=== PATIENT | male | born 1955 | race Caucasian/White ===

== ENCOUNTER 2016-11-03 05:32 | Day surgery (SDC) | payer OTHER ==
[2016-11-03] MEDS ORDERED: Sodium Chloride 0.9% 10 ML Syringe FLUSH PRN ×2 (06:12→06:15)
[2016-11-03] MEDS ORDERED: ceFAZolin 2 GM in Premix Bag 1 BAG IV ONE (06:15)
[2016-11-03] MEDS ORDERED: Lactated Ringers 1,000 ML IV SCH (06:15)
[2016-11-03] MEDS ORDERED: Lidocaine 1% 30 ML SDV ONE (06:18)
[2016-11-03] MEDS ORDERED: Bupivacaine 0.5% 10 ML SDV ONE (06:18)
[2016-11-03] MEDS ORDERED: Midazolam 1 MG/ML 2 ML SDV ONE (06:24)
[2016-11-03] MEDS ORDERED: fentaNYL 100 MCG/2 ML SDV ONE (06:24)
[2016-11-03] MEDS ORDERED: Glycopyrrolate 0.2 MG/ML 2 ML SDV ONE (06:24)
[2016-11-03] MEDS ORDERED: Ondansetron 4 MG/2 ML SDV ONE (06:24)
[2016-11-03] MEDS ORDERED: Propofol 200 MG/20 ML SDV ONE (06:24)
[2016-11-03] MEDS ORDERED: Lidocaine 2% 20 ML MDV ONE (06:25)
[2016-11-03] MEDS ORDERED: Famotidine 20 MG/2 ML SDV ONE (06:25)
[2016-11-03] MEDS ORDERED: Lidocaine 1% 30 ML SDV INJECT ONE ×2 (06:50→07:25)
[2016-11-03] MEDS ORDERED: Bupivacaine 0.5% 10 ML SDV INJECT ONE ×2 (06:50→07:25)
[2016-11-03] MEDS ORDERED: Acetaminophen/oxyCODONE 325-5 MG Tab PO PRN (07:32)
--- NOTE | 2016-11-03 07:34 | PCM.OPNOTE ---
- General Post-Op/Procedure Note Date of Surgery/Procedure: 11/03/16 Operative Procedure(s): left foot hardware removal Pre Op Diagnosis: left foot painful hardware Post-Op Diagnosis: stephanie Anesthesia Technique: Local, MAC Primary Surgeon: Alana Khanna Anesthesia Provider: Pedro Kidd EBL in mLs: 5 Complications: none Condition: Good Free Text/Narrative:: Pt tolerated procedure well and was transported to recovery with vss and vascular status intact to left foot. 2.0 kleber screw removed. tt 24 mins.
[2016-11-03 08:30] VITALS: BP 103/60
--- NOTE | 2016-11-03 12:23 | OR ---
DATE: 11/03/2016 PREOPERATIVE DIAGNOSIS: Left foot painful hardware. POSTOPERATIVE DIAGNOSIS: Left foot painful hardware. PROCEDURE PERFORMED: Left foot hardware removal. ANESTHESIA: Local MAC with preoperative local block of 10 mL of 1:1 mixture 1% lidocaine plain, and 0.5% Marcaine plain. TOURNIQUET TIME: 24 minutes. Pneumatic ankle tourniquet. ESTIMATED BLOOD LOSS: Minimal. SPECIMEN REMOVED: None. COMPLICATIONS: None. INDICATIONS: Clive is a 61-year-old male, who presents with continued swelling and pain to his forefoot, status post bunionectomy and hammertoe procedure done a few months ago. He states that he will get swelling by the end of the day to the forefoot which causes him to have trouble wearing shoes. He also feels like he cannot push off all the way when he is walking, legs have been stopping him from pushing off. He states that it really is not painful until the very end of the day when it started swelling. He is in regular shoes. X-rays, 3 views of the left foot reveal screw at the second metatarsal head has shifted and is now extending into the second metatarsal phalangeal joint at the plantar surface of the joint into the plantar soft tissues. It looks like there was possibly either some collapse of the bone in that area with the large bone callus and also lucency around the screw. The bunion site at the first metatarsal head is completely healed and the screw is intact. The patient voiced good understanding of proposed procedure and possible complications, and elects to have surgery at this time. PROCEDURE: The patient was taken to the operating room, lying in supine position. After adequate anesthesia induction as described above, the left foot was prepped and draped in the usual sterile fashion. A pneumatic ankle tourniquet was inflated to 225 mmHg. Attention was then directed to the dorsal aspect of the second metatarsal distal aspect where an approximately 3 cm linear incision was made overlying the distal metatarsal. Sharp and blunt dissection was made to the distal metatarsal at the area of the hardware. The hardware was not able to be visualized and the fluoroscopy was used to verify the position of the screw head. The screw was completely buried in the bone and a rongeur was used to remove the bone overlying the screw head. The bone was removed all the way actually the medullary canal where the screw had migrated to the medullary canal and was loose in that area. The screw was completely removed at that time. The area was then irrigated with copious amounts of sterile saline. Deep closure was completed with 3-0 Vicryl, and skin closure was completed with 4-0 Nylon. The area was dressed with Xeroform to the incision site, fluffs, Webril, and Dk wrap. He was placed in a Cam Boot. I will have him in a boot for approximately 2 to 4 weeks. He was then discharged home once he met hospital discharge requirements. [facility] /[id number]
[2016-11-03] MEDS ORDERED: Ondansetron 4 MG/2 ML SDV IV ONE (16:43)
[2016-11-03] MEDS ORDERED: Midazolam 1 MG/ML 2 ML SDV IV ONE (16:43)
[2016-11-03] MEDS ORDERED: Lidocaine 2% 20 ML MDV INJECT ONE (16:43)
[2016-11-03] MEDS ORDERED: fentaNYL 100 MCG/2 ML SDV IV ONE (16:43)
[2016-11-03] MEDS ORDERED: Glycopyrrolate 0.2 MG/ML 2 ML SDV IV ONE (16:43)
[2016-11-03] MEDS ORDERED: Propofol 200 MG/20 ML SDV IV ONE (16:43)
[2016-11-03] MEDS ORDERED: Famotidine 20 MG/2 ML SDV IV ONE (16:43)
== END 2016-11-03 08:46 | disposition home or self-care (01) ==
LOC: DL.SDS 05:32
PROVIDERS: ATTEND Podiatrist
DX: T84.84XA Pain due to internal orthopedic prosthetic devices, implants and grafts, initial encounter (principal)
CPT/HCPCS: 28022; 76000; J0690; J2250; J2405; J2704; J3010; J7120; 01480; J3490; S0028

== ENCOUNTER 2019-10-09 05:55 | Day surgery (SDC) | payer OTHER ==
[2019-10-09] MEDS ORDERED: fentaNYL 100 MCG/2 ML SDV IV ONE ×3 (05:56→06:59)
[2019-10-09] MEDS ORDERED: Midazolam 1 MG/ML 2 ML SDV IV ONE ×7 (05:56→07:05)
[2019-10-09] MEDS ORDERED: Dextrose 5%-0.45% NaCl 1,000 ML IV SCH (06:00)
[2019-10-09] MEDS ORDERED: Sodium Chloride 0.9% 10 ML Syringe FLUSH PRN (06:00)
[2019-10-09] MEDS ORDERED: Midazolam 1 MG/ML 2 ML SDV ONE (06:33)
[2019-10-09] MEDS ORDERED: fentaNYL 100 MCG/2 ML SDV ONE (06:34)
--- NOTE | 2019-10-09 07:53 | OR ---
DATE: 10/09/2019 PROCEDURE: Total colonoscopy, narrow band imaging, and cold snare polypectomy. INSTRUMENT USED: CF-NO866M Olympus video colonoscope. PREMEDICATIONS: Fentanyl 100 mcg intravenous, Versed 4 mg intravenous, nasal O2 cannula. Procedure was done under pulse oximetry, BP recording, and personnel monitor. INDICATION: The patient with rectal bleeding. Colonoscopic examination is done for detection of any polypoid lesions and removal. Endoscopic hemostasis therapy if needed. DESCRIPTION OF PROCEDURE: Initial rectal exam was unremarkable. Rigid anoscopy showed small internal hemorrhoids without bleeding from them. The colonoscope was passed with ease up to the ileocecal area. Photographs were taken of the normal-appearing cecum identified by double-bulged ileocecal folds. No bleeding was noted from any of the visualized areas at the commencement of the examination. There was some amount of solid fecal material that had to be aspirated clear. Braidwood scale 2 in all the areas, total score 6. No stricture. No vascular ectasia. No large isolated ulcerations seen. No evidence of diffuse inflammatory bowel disease in the form of friability, contact bleeding, or ulcerations. Probing the proximal sides of folds and flexures using adequate distention and clearing up the stool material, withdrawal of the scope was made. In the distal descending colon, 5 mm sized benign-appearing polyp was noted. NBI views were obtained. Cold snare polypectomy was done. The tissue was retrieved and sent for histopathology. No bleeding was noted from any of the visualized areas at the completion of examination. Photographs were taken of the polyp as well as polypectomy site. IMPRESSION: 1. Internal hemorrhoids. 2. Descending colon polyp. The patient tolerated the procedure well. [facility] /[id number]
[2019-10-09 09:29] VITALS: BP 138/80; PULSE 61
== END 2019-10-09 09:40 | disposition home or self-care (01) ==
LOC: DL.ENDO 05:55
PROVIDERS: ATTEND Internal Medicine Gastroenterology
DX: K63.5 Polyp of colon (principal); K64.8 Other hemorrhoids; I10 Essential (primary) hypertension; G47.33 Obstructive sleep apnea (adult) (pediatric); E66.09 Other obesity due to excess calories; G89.29 Other chronic pain; Z98.890 Other specified postprocedural states; Z68.37 Body mass index [BMI] 37.0-37.9, adult
CPT/HCPCS: 45385; J2250; J3010; J7042

== ENCOUNTER 2020-10-02 16:37 | Emergency (ER) | payer OTHER ==
[2020-10-02 16:54] VITALS: PULSE 52
[2020-10-02 17:19] LABS: ANION GAP 9.5 mEq/L (7-13); CHLORIDE,CL 101 mmol/L (98-107); SODIUM,NA 138 mmol/L (136-145)
--- NOTE | 2020-10-02 17:22 | EDM.PDOC ---
<GrazynaRoxana - Last Filed: 10/02/20 18:10> ED HPI GENERAL MEDICAL PROBLEM - General Chief Complaint: Respiratory Problem Stated Complaint: CHEST PAIN, SHORT OF BREATH, MIDDLE BACK Time Seen by Provider: 10/02/20 17:24 Source of Information: Reports: Patient History Limitations: Reports: No Limitations - History of Present Illness INITIAL COMMENTS - FREE TEXT/NARRATIVE: Patient is a 65 y.o male, sent to us from the [facility] in [place], who presents to the ED with c/o of 1)right sided chest pain 2)back spasms and 3)nausea/vomiting. The patient reports mid to lower back pain for the past 2-3 weeks, but states he woke up this morning and it was remarkably worse. He rates his pain as 8/10 and characterizes it as sharp. He then became nauseous and began dry heaving, but reports no emesis. His back pain began to radiate to the right side of his chest and he characterizes it as tight and sharp, rates it 8/10. No radiation to the jaw or left arm. No aggravating or alleviating factors. He reports associated shortness of breath due to his pain. He denies headache, dizziness, vision changes, or cough. He has no abdominal pain or goss ges in bowel or urinary habits. He denies alcohol, tobacco use, or recreational drug use. The patient was Covid positive September 09. Onset: Today Location: Reports: Chest, Back Quality: Reports: Sharp Severity: Moderate Improves with: Reports: None Worsens with: Reports: None Associated Symptoms: Reports: Chest Pain, Nausea/Vomiting, Shortness of Breath Back Pain Score (Numeric/FACES): 8 - Related Data Allergies Allergy/AdvReac Type Severity Reaction Status Date / Time No Known Allergies Allergy Verified 09/10/20 09:21 Home Meds: Home Meds Indomethacin [Indocin] 50 mg PO BID 04/23/16 [History] Metoprolol Tartrate 50 mg PO BID 04/23/16 [History] Zolpidem [Ambien] 10 mg PO BEDTIME PRN 04/23/16 [History] amLODIPine [Norvasc] 5 mg PO DAILY 04/23/16 [History] traMADol [Ultram] 100 mg PO Q8H PRN 04/23/16 [History] Amitriptyline [Elavil] 50 mg PO BEDTIME 06/23/16 [History] DULoxetine [Cymbalta] 60 mg PO DAILY 06/23/16 [History] sulfaSALAzine [sulfaSALAzine DR] 1,000 mg PO BID 09/10/20 [History] Past Medical History HEENT History: Reports: Impaired Vision Other HEENT History: WEARING GLASSES. REMOVABLE BRIDGE (UPPER) Cardiovascular History: Reports: Hypertension Respiratory History: Reports: Pneumonia, Recurrent, Sleep Apnea Other Respiratory History: had pna years ago. Gastrointestinal History: Reports: Colon Polyp, Other (See Below) Other Gastrointestinal History: OCCULT BLOOD IN STOOL. 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 "SEVERE" CONCUSSION WHEN YOUNGER Psychiatric History: Reports: Depression Other Psychiatric History: Related to fibromyalgia. currently the last three years "has spiraled on me". Patience Sanabria is aware of current struggle. Initially treated by [facility]. Client states he currently takes a med for it cymbalta but does not currently take it. Endocrine/Metabolic History: Reports: None Hematologic History: Reports: None Immunologic History: Reports: None Oncologic (Cancer) History: Reports: Other (See Below) Other Oncologic History: testicular cancer sx removal Dermatologic History: Reports: Other (See Below) Other Dermatologic History: SKIN CANCER - Infectious Disease History Infectious Disease History: Reports: Chicken Pox, Rheumatic Fever, Other (See Below) Other Infectious Disease History: Covid 19 - Past Surgical History Head Surgeries/Procedures: Reports: None HEENT Surgical History: Reports: Adenoidectomy, Tonsillectomy Cardiovascular Surgical History: Reports: None Respiratory Surgical History: Reports: None GI Surgical History: Reports: Bariatric Procedure, Colonoscopy, Hernia Repair/Other, Polypectomy, Other (See Below) Other GI Surgeries/Procedures: has a lap band placed . UMBILICAL HERNIA WITH DR. GOLDSTEIN. COLONOSCOPY Male Surgical History: Reports: Other (See Below) Endocrine Surgical History: Reports: None Neurological Surgical History: Reports: C-Spine, Lumbar Spine Other Neurological Surgeries/Procedures: recent spinal surgery to open up the spinal canal re:spinal stenosis Musculoskeletal Surgical History: Reports: Knee Replacement Other Musculoskeletal Surgeries/Procedures:: 2003- LEFT ROTATOR CUFF SURGERY. 06/24/2016- LEFT FOOT SURGERY. - BILATERAL TOTAL KNEE REPLACEMENT. 02/11/2016- FOREIGN BODY REMOVAL. 05/22/14- LEFT THUMB RECONSTRUCTION. CERVICAL DISC SURGERY. LUMBAR DISC SURGERY. ELBOW BURSA SURGERY Oncologic Surgical History: Reports: None Social & Family History - Family History Family Medical History: No Pertinent Family History - Tobacco Use Tobacco Use Status *Q: Never Tobacco User Second Hand Smoke Exposure: No - Caffeine Use Caffeine Use: Reports: None Other Caffeine Use: OCCASIONALLY - Recreational Drug Use Recreational Drug Use: No - Living Situation & Occupation Living situation: Reports: with Family ED ROS GENERAL - Review of Systems Review Of Systems: Comprehensive ROS is negative, except as noted in HPI. ED EXAM, GENERAL - Physical Exam Exam: See Below Exam Limited By: No Limitations General Appearance: Alert, WD/WN, Mild Distress Eye Exam: Bilateral Eye: EOMI, Normal Inspection Nose: Normal Inspection Throat/Mouth: Normal Inspection, Normal Lips, Normal Teeth, Normal Gums, Normal Oropharynx, Normal Voice, No Airway Compromise Head: Atraumatic, Normocephalic Neck: Normal Inspection, Supple, Non-Tender, Full Range of Motion Respiratory/Chest: No Respiratory Distress, Lungs Clear, Normal Breath Sounds, No Accessory Muscle Use, Chest Non-Tender Cardiovascular: Normal Peripheral Pulses, No Edema, No Gallop, No JVD, No Murmur, No Rub, Bradycardia, Irregularly Irregular GI/Abdominal: Normal Bowel Sounds, Soft, Non-Tender, No Organomegaly, No Distention, No Abnormal Bruit, No Mass (Male) Exam: Deferred Rectal (Males) Exam: Deferred Back Exam: Decreased Range of Motion (due to pain ), Muscle Spasm. No: Vertebral Tenderness Extremities: Normal Inspection, Normal Range of Motion, Non-Tender, Normal Capillary Refill, No Pedal Edema Neurological: Alert, Oriented, CN II-XII Intact, Normal Cognition, Normal Gait, Normal Reflexes, No Motor/Sensory Deficits Psychiatric: Normal Affect, Normal Mood Skin Exam: Warm, Dry, Intact, Normal Color, No Rash Lymphatic: No Adenopathy Departure - Departure Disposition: DC/Tfer to Acute Hospital 02 Clinical Impression: NSTEMI (non-ST elevated myocardial infarction) - Discharge Information Forms: Interfacility Transfer MARISSAALA Care Plan Goals: Discussed the patient's history, examination, EKG, lab and treatments with Dr. William. Dr. William accepted the patient for continued evaluation and management as an inpatient at [facility] in [place]. The patient will be transported by EMS. Sepsis Event Note (ED) - Evaluation Sepsis Screening Result: No Definite Risk <Ez Saldana - Last Filed: 10/02/20 18:25> #1 Interpretation EKG Date: 10/02/20 Time: 16:55 Rhythm: NSR [place]: Normal P-Wave: Present QRS: Normal ST-T: Normal QT: Normal Comparison: NA - No Prior EKG Course - Vital Signs Last Recorded V/S: Last Vital Signs Temp 35.3 C L 10/02/20 16:46 Pulse 52 L 10/02/20 16:46 Resp 16 10/02/20 16:46 BP 152/82 H 10/02/20 16:46 Pulse Ox 97 10/02/20 16:46 - Orders/Labs/Meds Orders: Active Orders 24 hr Category Date Time Status EKG Documentation Completion [RC] STAT Care 10/02/20 16:41 Active Chest 1V Frontal [CR] Urgent Exams 10/02/20 17:47 Ordered Heparin Sodium/0.45% NaCl [Heparin 25,000 Units in 1/2 Med 10/02/20 18:08 Active NS 500 ML] 25,000 units in 500 ml IV ONETIME Medication Orders Heparin Sodium/Sodium Chloride (Heparin 25,000 Units In 1/2 Ns 500 Ml) 25,000 units in 500 mls @ 34.161 mls/hr IV ONETIME ONE Stop: 10/03/20 08:46 Labs: Laboratory Tests 10/02/20 10/02/20 10/02/20 Range/Units 16:50 16:50 16:50 WBC 5.5 (5.0-10.0) 10^3/uL RBC 4.47 L (4.6-6.2) 10^6/uL Hgb 14.2 (14.0-18.0) g/dL Hct 39.6 L (40.0-54.0) % MCV 88.6 (80-100) fL MCH 31.8 (27.0-34.0) pg MCHC 35.9 H (33.0-35.0) g/dL Plt Count 226 (150-450) 10^3/uL Neut % (Auto) 61.9 (42.2-75.2) % Lymph % (Auto) 26.2 (20.5-50.1) % [place] % (Auto) 9.4 H (2-8) % Eos % (Auto) 1.8 (1.0-3.0) % Baso % (Auto) 0.7 (0.0-1.0) % PT 9.9 (9.0-12.0) SEC INR 1.0 (0.9-1.2) D-Dimer, Quantitative 215 (0-400) ng/mL Sodium 138 (136-145) mmol/L Potassium 4.5 (3.5-5.1) mmol/L Chloride 101 (98-107) mmol/L Carbon Dioxide 32 (21-32) mmol/L Anion Gap 9.5 (7-13) mEq/L BUN 12 (7-18) mg/dL Creatinine 1.15 (0.70-1.30) mg/dL Est Cr Clr Drug Dosing 74.30 mL/min Estimated GFR (MDRD) > 60 BUN/Creatinine Ratio 10.4 (No establ ref range) Glucose 92 (74-99) mg/dL Calcium 8.5 (8.5-10.1) mg/dL Total Bilirubin 0.4 (0.2-1.0) mg/dL AST 19 (15-37) U/L ALT 26 (16-63) U/L Alkaline Phosphatase 66 (46-116) U/L Troponin I 0.201 H* (0.000-0.056) ng/mL Total Protein 7.5 (6.4-8.2) g/dL Albumin 3.9 (3.4-5.0) g/dL Globulin 3.6 Albumin/Globulin Ratio 1.1 Meds: Medications Generic Name Dose Route Start Last Admin Trade Name Freq PRN Reason Stop Dose Admin Heparin Sodium/Sodium Chloride 25,000 units in 500 mls @ 34.161 mls/hr 10/02/20 18:08 Heparin 25,000 Units In 1/2 Ns 500 Ml IV 10/03/20 08:46 ONETIME ONE 12 UNITS/KG/HR Discontinued Medications Generic Name Dose Route Start Last Admin Trade Name Freq PRN Reason Stop Dose Admin Aspirin 324 mg 10/02/20 17:23 10/02/20 17:28 Aspirin 81 Mg Tab.Chew PO 10/02/20 17:24 324 mg ONETIME ONE Administration Heparin Sodium (Porcine) 4,000 units 10/02/20 18:07 Heparin Sodium 5,000 Units/Ml Vial IVPUSH 10/02/20 18:08 .BOLUS ONE Morphine Sulfate 2 mg 10/02/20 18:06 Morphine 2 Mg/Ml Syringe IVPUSH 10/02/20 18:07 ONETIME ONE Departure - Departure Time of Disposition: 18:21 Condition: Serious - Discharge Information *PRESCRIPTION DRUG MONITORING PROGRAM REVIEWED*: Not Applicable *COPY OF PRESCRIPTION DRUG MONITORING REPORT IN PATIENT VAHID: Not Applicable Sepsis Event Note (ED) - Focused Exam Vital Signs: Vital Signs Temp Pulse Resp BP Pulse Ox 10/02/20 16:46 35.3 C L 52 L 16 152/82 H 97 - My Orders Last 24 Hours: My Active Orders 10/02/20 16:41 EKG Documentation Completion [RC] STAT - Assessment/Plan Last 24 Hours: My Active Orders 10/02/20 16:41 EKG Documentation Completion [RC] STAT
[2020-10-02] MEDS ORDERED: Aspirin 81 MG Tab.Chew PO ONE (17:23)
[2020-10-02] MEDS ORDERED: Morphine 2 MG/ML SYRINGE IVPUSH ONE (18:06)
[2020-10-02] MEDS ORDERED: Heparin Sodium 5,000 Units/ML Vial IVPUSH ONE (18:07)
[2020-10-02] MEDS ORDERED: Heparin Sodium/0.45% NaCl 25,000 UNITS/500 ML BAG IV ONE (18:08)
--- NOTE | 2020-10-02 18:25 | CR ---
PROCEDURE INFORMATION: Exam: XR Chest Exam date and time: 10/02/2020 6:13 PM Age: 65 years old Clinical indication: Other: Chest pain TECHNIQUE: Imaging protocol: XR of the chest Views: 1 view. Total images: 1 COMPARISON: No relevant prior studies available. FINDINGS: Lungs: Normal pulmonary expansion. Pulmonary vasculature grossly normal. No gross pulmonary infiltrates. Pleural spaces: No pleural effusion. No pneumothorax. Heart/Mediastinum: Heart size normal. No tracheal/mediastinal shift. Vasculature: Mild aortic ectasia/tortuosity. Bones/joints: No acute osseous abnormalities are identified. IMPRESSION: No acute thoracic process.
[2020-10-02] MEDS ORDERED: Nitroglycerin 0.4 MG Tab.SL SL ONE (18:33)
[2020-10-02 18:39] VITALS: BP 137/83
== END 2020-10-02 19:45 ==
LOC: DL.ED 16:37
DX: I21.4 Non-ST elevation (NSTEMI) myocardial infarction (principal); I10 Essential (primary) hypertension; Z86.16 Personal history of COVID-19; Z79.899 Other long term (current) drug therapy
CPT/HCPCS: 36415; 71045; 80053; 84484; 85025; 85379; 85610; 93005; 93010; 96365; 96375; 99285; A9270; J1644; J2270

== ENCOUNTER 2023-03-08 12:31 | Emergency (ER) | payer MEDICARE, OTHER ==
[2023-03-08] MEDS ORDERED: Sodium Chloride 0.9% 10 ML Syringe FLUSH PRN (12:37)
[2023-03-08 12:46] LABS: BASOPHILS PERCENT AUTO 0.5 % (0.0-1.0); EOSINOPHILS PERCENT AUTO 1.4 % (1.0-3.0); HEMATOCRIT 45.3 % (40.0-54.0); HEMOGLOBIN 15.2 g/dL (14.0-18.0); LYMPHOCYTES PERCENT AUTO 20.9 % (20.5-50.1); MEAN CORPUSCULAR HEMOGLOBIN 30.3 pg (27.0-34.0); MEAN CORPUSCULAR HGB CONC 33.6 g/dL (33.0-35.0); MEAN CORPUSCULAR VOLUME 90.2 fL (80-100); NEUTROPHILS PERCENT AUTO 68.2 % (42.2-75.2); PLATELET COUNT,PLT 193 10^3/uL (150-450); RED BLOOD CELL COUNT 5.02 10^6/uL (4.6-6.2); WHITE BLOOD CELL COUNT,WBC 6.2 10^3/uL (5.0-10.0)
[2023-03-08 12:47] VITALS: BP 183/96; PULSE 68
[2023-03-08 13:04] LABS: INR 0.9 (0.9-1.2); PROTHROMBIN TIME 9.3 SEC (9.0-12.0); PTT,PARTIAL THROMBOPLSTIN TIME 23.7 SEC (22.0-34.0)
[2023-03-08 13:08] LABS: LACTIC ACID 0.8 mmol/L (0.4-2.0)
[2023-03-08 13:15] LABS: A/G RATIO 1.2; ALBUMIN 4.3 g/dL (3.4-5.0); ANION GAP 10.5 mEq/L (7-13); BILIRUBIN TOTAL 0.3 mg/dL (0.2-1.0); BUN/CREATININE RATIO 13.6 (No establ ref range); CALCIUM 9.4 mg/dL (8.5-10.1); CREATININE 1.03 mg/dL (0.70-1.30); EST CRCL DRUG DOSING (CG) 80.81 mL/min; MAGNESIUM 2.2 mg/dL (1.8-2.4); POTASSIUM,K 4.5 mmol/L (3.5-5.1); PROTEIN TOTAL,TP 7.9 g/dL (6.4-8.2); TSH ULTRASENSITIVE 1.4 uIU/mL (0.36-3.74)
[2023-03-08] MEDS ORDERED: Aspirin 81 MG Tab.Chew PO ONE (13:26)
[2023-03-08] MEDS ORDERED: atorvaSTATin 20 MG Tab PO ONE (13:43)
[2023-03-08] MEDS ORDERED: Metoprolol Tartrate 50 MG Tab PO ONE (13:43)
[2023-03-08] MEDS ORDERED: Clopidogrel 75 MG Tab PO ONE (13:43)
[2023-03-08] MEDS ORDERED: Heparin Sodium 5,000 Units/ML Vial IVPUSH ONE (13:49)
[2023-03-08] MEDS ORDERED: Heparin Sodium/0.45% NaCl 25,000 UNITS/500 ML BAG IV SCH (14:00)
== END 2023-03-08 14:33 ==
LOC: DL.ED 12:31
DX: I21.4 Non-ST elevation (NSTEMI) myocardial infarction (principal); Z86.16 Personal history of COVID-19
CPT/HCPCS: 36415; 71045; 80053; 83605; 83735; 83880; 84443; 84484; 85025; 85610; 85730; 93005; 96365; 99285-25; A9270-GY; J1644; J3490

== ENCOUNTER 2024-11-08 11:14 | Emergency (ER) | payer MEDICARE, OTHER ==
[2024-11-08] MEDS ORDERED: Sodium Chloride 0.9% 10 ML Syringe FLUSH PRN (11:32)
[2024-11-08] MEDS: Dexamethasone 4 MG/ML SDV IVPUSH ONE (11:42)
[2024-11-08] MEDS: HYDROmorphone 0.5 MG/0.5 ML Syringe IVPUSH ONE (11:43)
[2024-11-08] MEDS: Ondansetron 4 MG/2 ML SDV IVPUSH ONE (11:44)
[2024-11-08 12:15] VITALS: BP 142/70; PULSE 72
== END 2024-11-08 12:33 | disposition home or self-care (01) ==
LOC: DL.ED 11:14
DX: M54.32 Sciatica, left side (principal); I10 Essential (primary) hypertension; E66.9 Obesity, unspecified; M19.90 Unspecified osteoarthritis, unspecified site; Z79.899 Other long term (current) drug therapy; Z68.45 Body mass index [BMI] 70 or greater, adult
CPT/HCPCS: 96374; 96375; 99283; 99283-25; J1100; J2405

== ENCOUNTER 2025-06-13 09:33 | Emergency (ER) | payer MEDICARE, OTHER ==
[2025-06-13] MEDS ORDERED: Sodium Chloride 0.9% 10 ML Syringe FLUSH PRN (10:06)
[2025-06-13 10:13] LABS: BASOPHILS PERCENT AUTO 0.5 % (0.0-1.0); EOSINOPHILS PERCENT AUTO 1.9 % (1.0-3.0); LYMPHOCYTES PERCENT AUTO 17.2 % (20.5-50.1); MONOCYTES PERCENT AUTO 8.1 % (2-8); NEUTROPHILS PERCENT AUTO 72.3 % (42.2-75.2); PLATELET COUNT,PLT 152 10^3/uL (150-450); RED BLOOD CELL COUNT 4.52 10^6/uL (4.6-6.2); WHITE BLOOD CELL COUNT,WBC 5.8 10^3/uL (5.0-10.0)
[2025-06-13] MEDS: Ondansetron 4 MG/2 ML SDV IVPUSH ONE (10:30)
[2025-06-13 10:33] LABS: LACTIC ACID 1.5 mmol/L (0.4-2.0)
[2025-06-13 10:40] LABS: A/G RATIO 1.1; ALANINE AMINOTRANSFERASE,ALT 16 U/L (16-63); ASPARTATE AMNIOTRANSFERASE,AST 21 U/L (15-37); BILIRUBIN TOTAL 0.6 mg/dL (0.2-1.0); BLOOD UREA NITROGEN,BUN 14 mg/dL (7-18); CARBON DIOXIDE,CO2 29 mmol/L (21-32); CHLORIDE,CL 99 mmol/L (98-107); CREATINE KINASE,CK 78 U/L (39-308); CREATININE 1.23 mg/dL (0.70-1.30); GLUCOSE RANDOM 116 mg/dL (70-99); POTASSIUM,K 4.3 mmol/L (3.5-5.1); PROTEIN TOTAL,TP 7.6 g/dL (6.4-8.2); SODIUM,NA 138 mmol/L (136-145)
[2025-06-13 10:41] LABS: ESTIMATED GFR 64 mL/min (>=60)
[2025-06-13 11:28] LABS: APPEARANCE,URINE CLEAR (CLEAR); GLUCOSE,URINE NEGATIVE (NEGATIVE); OCCULT BLOOD,URINE NEGATIVE (NEGATIVE)
[2025-06-13] MEDS: Iopamidol 612 MG/ML 100 ML Bottle IVPUSH ONE (11:32)
[2025-06-13 16:13] VITALS: BP 155/87; PULSE 75
== END 2025-06-13 15:41 | disposition home or self-care (01) ==
LOC: DL.ED 09:33
DX: R10.13 Epigastric pain (principal); Z98.84 Bariatric surgery status; I10 Essential (primary) hypertension; Z79.899 Other long term (current) drug therapy
CPT/HCPCS: 36415; 74177; 80053; 81003; 82550; 83605; 83735; 84484; 85025; 93005; 96361; 96374; 99285; A9270; J2405; J7030; Q9967